=== PATIENT | male | born 1970 | race Caucasian/White ===

== ENCOUNTER 2019-01-06 16:50 | Emergency (ER) | payer MEDICARE, OTHER ==
[~2019-01-06] VITALS: Ht 188 cm; Wt 124.7 kg
[~2019-01-06 16:50] MED LIST: Bactrim Ds Tab1 EACH PO; CEPH500 PO; Cyclobenzaprine5 MG PO; HYDACE5 PO; HYDR1TAB94 PO; IBUP600 PO; Norco 5-325 Ta1 EACH PO; Prednisone20 MG PO; Robaxin500 MG PO; SULTRIDS PO; TUSSIN DM SYRU PO
[2019-01-06] MEDS ORDERED: IBUP800 PO (19:49)
== END 2019-01-06 19:54 | disposition home or self-care (01) ==
LOC: ER 16:50
DX: G89.29 Other chronic pain (principal); M54.5 Low back pain; F17.200 Nicotine dependence, unspecified, uncomplicated; Z88.0 Allergy status to penicillin
CPT/HCPCS: 96372; 99283-25; J1885

== ENCOUNTER 2019-06-28 15:19 | Emergency (ER) | payer MEDICARE, OTHER ==
[~2019-06-28] VITALS: Ht 188 cm; Wt 106.6 kg
[~2019-06-28 15:19] MED LIST changes: +IBUP800 PO
[2019-06-28] MEDS ORDERED: Norco 5-325 Ta1 EACH PO (16:16)
[2019-06-28] MEDS ORDERED: IBUP600 PO (16:16)
[2019-06-28] MEDS ORDERED: CYCL10 PO (16:16)
== END 2019-06-28 16:35 | disposition home or self-care (01) ==
LOC: ER 15:19
DX: G89.29 Other chronic pain (principal); M54.5 Low back pain; F17.220 Nicotine dependence, chewing tobacco, uncomplicated; Z88.0 Allergy status to penicillin
CPT/HCPCS: 72100; 96372; 99283-25; J1885

== ENCOUNTER 2020-11-20 09:27 | Observation (INO) | payer MEDICARE, OTHER ==
[~2020-11-20] VITALS: Ht 188 cm; Wt 90.7 kg
[~2020-11-20 09:27] MED LIST changes: +CYCL10 PO
[2020-11-20 11:24] LABS: SARS-Cov-2 (COVID-19) PCR, MMC NEGATIVE (NEGATIVE)
== END 2020-11-20 14:10 | disposition home or self-care (01) ==
LOC: ER 09:27 → EOR 09:28
PROVIDERS: ADMIT Student in an Organized Health Care Education/Training Program
DX: F43.25 Adjustment disorder with mixed disturbance of emotions and conduct (principal); F32.9 Major depressive disorder, single episode, unspecified; F17.220 Nicotine dependence, chewing tobacco, uncomplicated; Z20.822 Contact with and (suspected) exposure to COVID-19; Z88.0 Allergy status to penicillin
CPT/HCPCS: 99285; G0378; Q3014; U0004

== ENCOUNTER → 2021-09-10 | Emergency (ER) | payer MEDICARE, OTHER ==
[~2021-09-10] VITALS: Ht 188 cm; Wt 99.8 kg
== END ==
LOC: ER 18:31
DX: M25.512 Pain in left shoulder (principal); F17.200 Nicotine dependence, unspecified, uncomplicated; Z88.0 Allergy status to penicillin
CPT/HCPCS: 73030; 99283-25